=== PATIENT | male | born 1995 | race Caucasian/White ===

== ENCOUNTER 2023-12-07 17:13 | Emergency (ER) | payer OTHER, SELFPAY ==
[2023-12-07 17:32] VITALS: BP 120/87; PULSE 88; RESP 18; TEMP 36.6; O2SAT 97; BMI 19.7
--- NOTE | 2023-12-07 17:34 | ED_ITS ---
HPI - General Adult General Chief complaint: General Medical Stated complaint: exposure to bat in home Time Seen by Provider: 12/07/23 20:20 Source: patient, RN notes reviewed and old records reviewed Mode of arrival: ambulatory Limitations: no limitations History of Present Illness ED Provider: Mickey HPI narrative: 27-year-old male with no significant past medical history presents for e valuation of a bat exposure. Patient woke up this morning and found a bat flying around the house. He does not have any known bites or scratches. He is unsure if he actually came in contact with the bat He reports the bat was captured in animal control colectomy back in the bat was reportedly sent for testing The patient is requesting rabies vaccine and immunoglobulin Related Data Allergies Allergy/AdvReac Type Severity Reaction Status Date / Time No Known Allergies Allergy Verified 12/07/23 17:33 Review of Systems Constitutional: Constitutional: Denies body ache(s), Denies chills and Denies fever(s) Cardiovascular: Cardiovascular: Denies chest pain Respiratory: Respiratory: Denies cough Integumentary/Breasts: Skin/Breast: Denies rash and Denies wounds PMFSH Past Medical History Medical History (Updated 12/07/23 @ 20:53 by [place] Arevalo) No known health problems Social History Social History Smoked in Last 30 Days: No Advance Directives: No Advance Directives Information Provided: No Do you have a plan to hurt others: No Plan Physical Exam ED Vital Signs: Vital Signs - 24 hr 12/07/23 17:32 12/07/23 19:48 Temperature 97.9 F 98.5 F Pulse Rate 88 73 Respiratory Rate 18 16 Blood Pressure 120/87 121/71 Pulse Oximetry 97 98 Oxygen Delivery Method Room Air Room Air BMI result Body Mass Index 19.7 Const General: healthy appearing, comfortable, no acute distress, alert and awake Nutritional Appearance: well nourished Orientation/consciousness: patient oriented x3 HENMT Head: Yes normocephalic and Yes atraumatic Eyes Eyelids: Yes eyelids normal Conjunctivae: conjunctivae normal Sclerae: sclerae normal Corneas: corneas normal Pupils: Equal, round and reactive pupils present EOM: EOMs intact bilaterally Neck Neck: Yes full ROM Resp Effort & Inspection: normal respiratory effort, able to speak in complete sentences and not labored Skin General skin exam: elasticity normal Neuro General: patient oriented x3 Cranial nerves: Yes Equal, round and reactive pupils present and Yes Bilaterally intact EOM present Cognition (Neuro): normal cognition Extrem Other: Moving all extremities well without any obvious deformities Course Course Course Narrative: This is an RME: Additional HPI, ROS, PE not included below will be deferred to primary provider. RME assessment and note performed by: Petty Stacy PA-C This is a 27 year old male, with no known medical problems, presenting to the ER after bat exposure in his apartment. No known bites. Feeling well. Plan: Rabies shot & immunoglobin Medical Decision Making Medical Decision Making MDM Narrative: 27-year-old male with no significant past medical history presents for evaluation of a bat exposure. There was no known bite or scratch. However the patient woke up with a bat in the house and is unsure if there was any true bite or scratch. Discussed risks and benefits of rabies vaccination status and the patient would like to have the immune globulin and vaccine series started Differential Diagnosis Differential Diagnoses: The differential diagnosis associated with the presentation includes Bat exposure Rabies exposure Well visit Bat bite Discharge Plan Discharge Clinical Impression: Exposure to bat without known bite Patient Disposition: Home, Self-Care Instructions: Rabies Immune Globulin (By injection), Rabies (ED) Additional Instructions: Rabies follow up with the [facility]: Upon discharge from the ED today, you will be contacted by the Infusion Center to schedule your follow up Rabies vaccines. You will need a total of 3 more injections. If for some reason you do not receive a call, please call the Infusion Center directly at [phone]. Follow up with your primary care provider after completion of the vaccine to have a titer drawn to ensure the vaccines effectiveness. Print Language: Bulgarian
[2023-12-07 19:48] VITALS: BP 121/71; PULSE 73; RESP 16; TEMP 36.9; O2SAT 98
--- NOTE | 2023-12-07 20:38 | PC.NURSE ---
Provider to bedside for primary eval. Pt reports bat in house overnight. No actual bites noted. Bat being tested for rabies by animal control. Pt requesting vaccine.
[2023-12-07] MEDS: Rabies Vaccine, Human Diploid (Imovax) 1 ML VIAL IM (22:14)
[2023-12-07] MEDS: Rabies Immune Globulin/PF 900 UNIT/3 ML VIAL 1140 UNIT IM (22:14)
[2023-12-07 22:18] VITALS: BP 121/71; PULSE 73; RESP 18; TEMP 36.9; O2SAT 98
== END 2023-12-07 22:19 | disposition home or self-care (01) ==
PROVIDERS: Emergency Provider Internal Medicine
DX: Z20.3 Contact with and (suspected) exposure to rabies (principal); Z23 Encounter for immunization
CPT/HCPCS: 90375; 90471; 90675; 96372; 99284

== ENCOUNTER 2023-12-09 11:49 | Outpatient (RCR) | payer OTHER, SELFPAY ==
[2023-12-09 11:54] VITALS: BP 103/63; PULSE 72; RESP 16; TEMP 37.2; O2SAT 98
[2023-12-09] MEDS: Rabies Vaccine, Human Diploid (Imovax) 1 ML VIAL IM (12:02)
--- NOTE | 2023-12-09 12:06 | HO.INF ---
rabies vaccine given left deltoid
== END 2023-12-13 09:43 | disposition other institution (70) ==
LOC: HO.INF 11:49
PROVIDERS: Visit Provider Physician Assistant
DX: Z20.3 Contact with and (suspected) exposure to rabies (principal)
CPT/HCPCS: 90471; 90675